=== PATIENT | female | born 1950 | race Caucasian/White ===

== ENCOUNTER 2018-03-09 14:15 | Emergency (ER) | payer MEDICARE ==
[~2018-03-09] VITALS: Ht 177.8 cm; Wt 54.5 kg
[2018-03-09 14:18] VITALS: TEMP 99.2
[2018-03-09 15:30] LABS: HEMATOCRIT 41.3 % (37.0-47.0); HEMOGLOBIN 13.7 g/dl (12.5-16.0); MEAN CELL VOLUME 91 fl (80.0-100.0); MEAN CORPUSCULAR HEMOGLOBIN 30 pg (27.0-31.0); MEAN CORPUSCULAR HGB CONC 33 g/dl (33.0-37.0); MEAN PLATELET VOLUME 10.2 fl (7.4-10.4); PLATELET COUNT 302 K/mm3 (130-400); RED BLOOD COUNT 4.52 M/mm3 (4.10-5.30); REDCELL DISTRIBUTION WIDTH-CV 13.4 % (11.5-14.5)
[2018-03-09 15:41] LABS: ALBUMIN 3.8 gm/dL (3.5-5.0); BILIRUBIN,TOTAL 0.9 mg/dL (0.0-1.0); CALCIUM 9.9 mg/dL (8.4-10.2); CREATININE, serum 0.86 mg/dL (0.52-1.25); POTASSIUM 3.7 mmol/L (3.4-5.0); TOTAL PROTEIN 8.5 gm/dL (6.4-8.2)
[2018-03-09 15:48] LABS: BAND 1 % (0-10); LYMPHOCYTE 9 % (20.0-51.0); NEUTROPHILS 85 % (42.0-75.2); PLATELET ESTIMATE NORMAL (NORMAL)
[2018-03-09 15:52] LABS: INR 1.1 (0.8-3.0); PROTHROMBIN TIME 12.6 SECONDS (9.7-12.8)
[2018-03-09 17:15] LABS: COLLECTION METHOD CLEAN CATCH
[2018-03-09 17:30] LABS: MUCOUS Present /lpf; PH 5 (5-8); URINE APPEARANCE Hazy; URINE BACTERIA None Seen /hpf; URINE BILIRUBIN Negative (NEGATIVE); URINE BLOOD Negative (NEGATIVE); URINE COLOR Yellow; URINE GLUCOSE Negative (NEGATIVE); URINE KETONE 1+ (NEGATIVE); URINE LEUKOCYTE ESTERASE Negative (NEGATIVE); URINE NITRATE Negative (NEGATIVE); URINE PROTEIN(semi-quant) 2+ (NEGATIVE); URINE RBC 0-2 /hpf; URINE UROBILINOGEN Negative (NEGATIVE)
[2018-03-09] MEDS ORDERED: AMOXICILLIN/CLA1 TA1 PO (17:43)
[2018-03-09 17:53] VITALS: BP 132/73; PULSE 101
== END 2018-03-09 17:55 | disposition home or self-care (01) ==
LOC: COL.ER 14:15
PROVIDERS: Emergency Medicine
DX: J18.1 Lobar pneumonia, unspecified organism (principal); F17.210 Nicotine dependence, cigarettes, uncomplicated
CPT/HCPCS: J0696; J1885; J2765; J3010; J7030

== ENCOUNTER 2018-03-10 09:35 | Inpatient (IN) | payer MEDICARE ==
[~2018-03-10] VITALS: Ht 177.8 cm; Wt 54.5 kg
[~2018-03-10 09:35] MED LIST: AMOXICILLIN/CLA1 TA1 PO
[2018-03-10 10:27] VITALS: BP 117/85; PULSE 95; TEMP 98.4
[2018-03-10 11:09] LABS: BASO # 0.1 (0.0-0.2); BASO % 0.3 % (0.0-2.0); EOS % 0.2 % (0-4.0); GRAN % 76.7 % (42.2-75.2); HEMATOCRIT 37.6 % (37.0-47.0); HEMOGLOBIN 12.3 g/dl (12.5-16.0); LYMPH # 1.5 (1.2-3.4); LYMPH % 8.6 % (20.0-51.0); MEAN CELL VOLUME 94 fl (80.0-100.0); MEAN CORPUSCULAR HEMOGLOBIN 31 pg (27.0-31.0); MEAN CORPUSCULAR HGB CONC 33 g/dl (33.0-37.0); MEAN PLATELET VOLUME 10.3 fl (7.4-10.4); MONO # 2.1 (0.1-0.6); MONO % 12.6 % (1.7-9.3); PLATELET COUNT 290 K/mm3 (130-400); REDCELL DISTRIBUTION WIDTH-CV 13.8 % (11.5-14.5)
[2018-03-10 11:20] LABS: ALBUMIN 3.3 gm/dL (3.5-5.0); BILIRUBIN,TOTAL 0.5 mg/dL (0.0-1.0); CALCIUM 9.1 mg/dL (8.4-10.2); CREATININE, serum 0.7 mg/dL (0.52-1.25); POTASSIUM 3.5 mmol/L (3.4-5.0); TOTAL PROTEIN 7.1 gm/dL (6.4-8.2)
[2018-03-10 15:49] VITALS: BP 141/82; PULSE 103; TEMP 99.6
[2018-03-10 19:37] VITALS: BP 133/61; PULSE 94; TEMP 98.2
[2018-03-11] VITALS (7 sets, daily range): BP systolic 127–145; BP diastolic 61–79; PULSE 88–116; TEMP 97.8–98.5
[2018-03-11 08:58] LABS: MEAN CELL VOLUME 91 fl (80.0-100.0); MEAN CORPUSCULAR HEMOGLOBIN 31 pg (27.0-31.0); MEAN CORPUSCULAR HGB CONC 34 g/dl (33.0-37.0); MEAN PLATELET VOLUME 10.5 fl (7.4-10.4); PLATELET COUNT 332 K/mm3 (130-400); RED BLOOD COUNT 3.93 M/mm3 (4.10-5.30); REDCELL DISTRIBUTION WIDTH-CV 13.9 % (11.5-14.5)
[2018-03-11 08:59] LABS: HEMATOCRIT 35.7 % (37.0-47.0)
[2018-03-11 09:07] LABS: CALCIUM 8.6 mg/dL (8.4-10.2); CREATININE, serum 0.62 mg/dL (0.52-1.25); POTASSIUM 3.3 mmol/L (3.4-5.0)
[2018-03-11 09:28] LABS: BAND 7 % (0-10); EOSINOPHIL 2 % (0-4); LYMPHOCYTE 14 % (20.0-51.0); NEUTROPHILS 69 % (42.0-75.2); PLATELET ESTIMATE NORMAL (NORMAL); TOXIC GRANULATION PRESENT
[2018-03-12 04:26] VITALS: BP 138/71; PULSE 92; TEMP 98.6
[2018-03-12 07:55] VITALS: BP 146/78; PULSE 97; TEMP 97.7
[2018-03-12 11:09] VITALS: BP 146/86; PULSE 100; TEMP 98.3
[2018-03-12 15:57] VITALS: BP 131/70; PULSE 97; TEMP 98.1
[2018-03-12 20:00] VITALS: BP 130/70; PULSE 107; TEMP 98.4
[2018-03-13] VITALS: BP 136/74; PULSE 88; TEMP 97.9
[2018-03-13 03:59] VITALS: BP 125/55; BP 133/73; PULSE 89; PULSE 93; TEMP 97.8; TEMP 99.7
[2018-03-13 06:59] LABS: HEMATOCRIT 39.5 % (37.0-47.0); MEAN CELL VOLUME 92 fl (80.0-100.0); MEAN CORPUSCULAR HEMOGLOBIN 30 pg (27.0-31.0); MEAN CORPUSCULAR HGB CONC 33 g/dl (33.0-37.0); MEAN PLATELET VOLUME 9.8 fl (7.4-10.4); REDCELL DISTRIBUTION WIDTH-CV 13.8 % (11.5-14.5)
[2018-03-13 07:02] LABS: PLATELET COUNT 489 K/mm3 (130-400)
[2018-03-13 07:17] VITALS: BP 124/63; PULSE 83; TEMP 98
[2018-03-13 07:20] LABS: CALCIUM 8.8 mg/dL (8.4-10.2); CREATININE, serum 0.59 mg/dL (0.52-1.25); MAGNESIUM 2.3 mg/dL (1.6-2.3); POTASSIUM 3.6 mmol/L (3.4-5.0)
[2018-03-13 08:32] LABS: BAND 2 % (0-10); BASOPHIL 1 % (0-2); EOSINOPHIL 1 % (0-4); LYMPHOCYTE 14 % (20.0-51.0); NEUTROPHILS 72 % (42.0-75.2); PLATELET ESTIMATE INCREASED (NORMAL)
[2018-03-13 08:33] LABS: POLYCHROMASIA 1+; TARGET CELLS 1+
[2018-03-13 10:39] VITALS: BP 129/67; PULSE 89; TEMP 98.1
[2018-03-13 11:09] LABS: INR 1.1 (0.8-3.0); PROTHROMBIN TIME 12.2 SECONDS (9.7-12.8)
[2018-03-13 15:10] VITALS: BP 137/68; PULSE 61; TEMP 98.8
[2018-03-13 20:00] VITALS: BP 137/72; PULSE 100; TEMP 98.4
[2018-03-14] VITALS (12 sets, daily range): BP systolic 90–140; BP diastolic 47–73; PULSE 78–101; TEMP 98.1–98.7
[2018-03-15] VITALS (7 sets, daily range): BP systolic 110–124; BP diastolic 53–69; PULSE 78–97; TEMP 97.6–98.3
[2018-03-15 07:59] LABS: POTASSIUM 4.5 mmol/L (3.4-5.0)
[2018-03-15 08:02] LABS: HEMATOCRIT 40.9 % (37.0-47.0); HEMOGLOBIN 12.3 g/dl (12.5-16.0); MEAN CORPUSCULAR HEMOGLOBIN 30 pg (27.0-31.0); MEAN CORPUSCULAR HGB CONC 30 g/dl (33.0-37.0); PLATELET COUNT 556 K/mm3 (130-400); RED BLOOD COUNT 4.05 M/mm3 (4.10-5.30); REDCELL DISTRIBUTION WIDTH-CV 14.5 % (11.5-14.5)
[2018-03-15 08:04] LABS: MEAN CELL VOLUME 101 fl (80.0-100.0)
[2018-03-15 09:00] LABS: CALCIUM 8.6 mg/dL (8.4-10.2); CREATININE, serum 0.61 mg/dL (0.52-1.25)
[2018-03-15 09:08] LABS: BAND 11 % (0-10); EOSINOPHIL 1 % (0-4); LYMPHOCYTE 11 % (20.0-51.0); NEUTROPHILS 74 % (42.0-75.2); PLATELET ESTIMATE INCREASED (NORMAL)
[2018-03-15 09:09] LABS: HYPOCHROMIA 3+
[2018-03-16 04:12] VITALS: BP 126/68; PULSE 69; TEMP 97.6
[2018-03-16 07:27] LABS: HEMOGLOBIN 10.8 g/dl (12.5-16.0); MEAN CORPUSCULAR HEMOGLOBIN 31 pg (27.0-31.0); MEAN CORPUSCULAR HGB CONC 32 g/dl (33.0-37.0); MEAN PLATELET VOLUME 10.3 fl (7.4-10.4); PLATELET COUNT 559 K/mm3 (130-400); RED BLOOD COUNT 3.52 M/mm3 (4.10-5.30); REDCELL DISTRIBUTION WIDTH-CV 14.2 % (11.5-14.5)
[2018-03-16 07:31] LABS: HEMATOCRIT 33.9 % (37.0-47.0); MEAN CELL VOLUME 96 fl (80.0-100.0)
[2018-03-16 07:44] LABS: CALCIUM 8.4 mg/dL (8.4-10.2); CREATININE, serum 0.62 mg/dL (0.52-1.25); POTASSIUM 4.1 mmol/L (3.4-5.0)
[2018-03-16 08:05] LABS: BAND 5 % (0-10); EOSINOPHIL 1 % (0-4); LYMPHOCYTE 29 % (20.0-51.0); METAMYELOCYTE 1 % (0-0); NEUTROPHILS 60 % (42.0-75.2)
[2018-03-16 08:06] LABS: HYPOCHROMIA 2+; PLATELET ESTIMATE INCREASED (NORMAL)
[2018-03-16 08:24] VITALS: BP 123/60; PULSE 71; TEMP 97.9
[2018-03-16 11:28] VITALS: BP 111/61; PULSE 72; TEMP 97.7
[2018-03-16 16:01] VITALS: BP 90/59; PULSE 79
[2018-03-16 20:07] VITALS: BP 129/59; PULSE 64; TEMP 98
[2018-03-17] VITALS (7 sets, daily range): BP systolic 122–143; BP diastolic 61–79; PULSE 77–94; TEMP 98.2–98.6
[2018-03-17] MEDS ORDERED: CEFTIN500 MG PO (11:41)
[2018-03-18 04:32] VITALS: BP 123/66; PULSE 77; TEMP 98.4
[2018-03-18 08:44] VITALS: BP 122/63; PULSE 93; TEMP 98.1
== END 2018-03-18 13:00 | disposition home or self-care (01) | DRG 853 ==
LOC: MEDICAL 09:35 → SURG 10:16
PROVIDERS: Family Medicine; Internal Medicine; Physician Assistant; Student in an Organized Health Care Education/Training Program; Surgery
PROC: 0W9940Z Drainage of Right Pleural Cavity with Drainage Device, Percutaneous Endoscopic Approach (ICD-10-PCS; 2018-03-14)
PROC: 0BNF4ZZ Release Right Lower Lung Lobe, Percutaneous Endoscopic Approach (ICD-10-PCS; principal; 2018-03-14 11:00)
DX: A40.3 Sepsis due to Streptococcus pneumoniae (principal); J18.9 Pneumonia, unspecified organism; J44.0 Chronic obstructive pulmonary disease with (acute) lower respiratory infection; J90 Pleural effusion, not elsewhere classified; R91.8 Other nonspecific abnormal finding of lung field; F17.210 Nicotine dependence, cigarettes, uncomplicated; E87.6 Hypokalemia
CPT/HCPCS: 99223-AI; 99231-AI; 99232-AI; 99233-AI; 99238; 99239; A7041; J0690; J0696; J2405; J2704; J3010; J3480; J7030; Q9967